=== PATIENT | female | born 1995 | race African-American/Black ===

== ENCOUNTER 2020-01-07 09:44 | Outpatient (CLI) | payer OTHER ==
[~2020-01-07 09:44] MED LIST: ALBU90AE13 INH; ALBUTEROL0.083 % IN; CLARITIN10 MG PO; FLOVENT HFA44 MCG IN; MONT10TA PO; PRENATAL/FE PO; Z-PAK PO
== END 2020-01-07 19:06 | disposition home or self-care (01) ==
LOC: RAD 09:44
DX: R10.9 Unspecified abdominal pain (principal); R10.2 Pelvic and perineal pain; Z87.19 Personal history of other diseases of the digestive system; N39.0 Urinary tract infection, site not specified

== ENCOUNTER 2020-01-20 10:00 | Outpatient (CLI) | payer OTHER | END 2020-01-20 22:37 | disposition home or self-care (01) | LOC: US 10:00 | DX: R10.2 Pelvic and perineal pain (principal); N39.0 Urinary tract infection, site not specified; R10.9 Unspecified abdominal pain ==

== ENCOUNTER 2020-01-21 14:54 | Outpatient (CLI) | payer OTHER | END 2020-01-21 23:34 | disposition home or self-care (01) | LOC: LABW 14:54 | DX: R10.2 Pelvic and perineal pain (principal) | CPT/HCPCS: 87490; 87590 ==

== ENCOUNTER 2022-05-21 13:29 | Emergency (ER) | payer OTHER ==
[~2022-05-21] VITALS: Ht 149.9 cm; Wt 81.6 kg
[2022-05-21 15:52] VITALS: BP 132/81; TEMP 98.5
== END 2022-05-21 15:52 | disposition home or self-care (01) ==
LOC: ED 13:29
DX: H65.191 Other acute nonsuppurative otitis media, right ear (principal); J32.2 Chronic ethmoidal sinusitis
CPT/HCPCS: 99282

== ENCOUNTER 2022-10-08 20:03 | Emergency (ER) | payer OTHER ==
[~2022-10-08] VITALS: Ht 149.9 cm; Wt 90.7 kg
[2022-10-08 20:06] VITALS: BP 127/83; TEMP 97.9
== END 2022-10-08 21:44 | disposition home or self-care (01) ==
LOC: ED 20:03
DX: K04.7 Periapical abscess without sinus (principal)
CPT/HCPCS: 96372; 99283; J0696; J1885